=== PATIENT | male | born 1940 | race Two or more races ===

== ENCOUNTER 2023-03-28 10:14 | Emergency (ER) | payer MEDICARE ==
[~2023-03-28] VITALS: Ht 162.6 cm; Wt 64.5 kg
[2023-03-28 10:15] VITALS: TEMP 98.3
[2023-03-28] MEDS ORDERED: AMLO2.5T96 PO (10:19)
[2023-03-28 10:26] VITALS: BP 147/80; PULSE 79; RESP 18
[2023-03-28] MEDS ORDERED: CEPH-558 PO (10:52)
[2023-03-28] MEDS ORDERED: TRAM-559 PO (10:52)
[2023-03-28] MEDS ORDERED: PRED-554 PO (10:52)
[2023-03-28] MEDS ORDERED: ACYC-138 PO (10:52)
== END 2023-03-28 11:00 | disposition home or self-care (01) ==
LOC: EMS 10:17
DX: B02.9 Zoster without complications (principal)
CPT/HCPCS: 99283